=== PATIENT | female | born 1990 | race Caucasian/White ===

== ENCOUNTER 2018-05-27 16:39 | Emergency (ER) | payer OTHER ==
--- NOTE | 2018-05-27 16:49 | ED ---
General Adult HPI - General Stated complaint: Needlestick-[facility] Time Seen by Provider: 05/27/18 16:46 Source: patient, RN notes reviewed Mode of arrival: ambulatory Limitations: no limitations - History of Present Illness Initial comments: 27-year-old female presents emergency Department for finger stick. Patient denies emergency department. Patient states she was closing the A nail after giving IM injection. Patient states that she is unsure what caused the laceration. Patient up-to-date on her tetanus. Patient states injury happened to her index finger. Patient offers no other complaints. - Related Data Home Medications Medication Instructions Recorded Confirmed No Known Home Medications 08/30/13 08/30/13 Allergies Allergy/AdvReac Type Severity Reaction Status Date / Time Penicillins Allergy Unknown Verified 08/30/13 15:49 Review of Systems ROS Statement: Those systems with pertinent positive or pertinent negative responses have been documented in the HPI. ROS Other: All systems not noted in ROS Statement are negative. Past Medical History Past Medical History: No Reported History History of Any Multi-Drug Resistant Organisms: None Reported Past Surgical History: No Surgical Hx Reported Past Anesthesia/Blood Transfusion Reactions: No Reported Reaction Past Psychological History: No Psychological Hx Reported Smoking Status: Never smoker Past Alcohol Use History: None Reported Past Drug Use History: None Reported General Exam General appearance: alert, in no apparent distress Head exam: Present: atraumatic, normocephalic, normal inspection Eye exam: Present: normal appearance, PERRL, EOMI. Absent: scleral icterus, conjunctival injection, periorbital swelling ENT exam: Present: normal exam, normal oropharynx, mucous membranes moist Neck exam: Present: normal inspection. Absent: tenderness, meningismus, lymphadenopathy Respiratory exam: Present: normal lung sounds bilaterally. Absent: respiratory distress, wheezes, rales, rhonchi, stridor Cardiovascular Exam: Present: regular rate, normal rhythm, normal heart sounds. Absent: systolic murmur, diastolic murmur, rubs, gallop, clicks Extremities exam: Present: other (Small puncture wound noted on theFinger) Skin exam: Present: warm, dry, intact, normal color. Absent: rash Medical Decision Making - Medical Decision Making 27-year-old female presented for possible needlestick. Patient revealed we ordered. We discussed prophylaxis this will be based on HIV. We discussed follow-up. Disposition Clinical Impression: Needlestick injury accident Disposition: HOME SELF-CARE Condition: Stable Instructions (If sedation given, give patient instructions): Needle Stick Injuries (ED) Additional Instructions: Please return to the Emergency Department if symptoms worsen or any other concerns. Is patient prescribed a controlled substance at d/c from ED?: No Referrals: Josh Smart MD [Primary Care Provider] - 1-2 days Time of Disposition: 16:49
[2018-05-27 16:50] VITALS: BP 134/83; PULSE 93; RESP 16; TEMP 98.5
== END 2018-05-27 17:24 | disposition home or self-care (01) ==
LOC: EC 16:39
DX: S61.231A Puncture wound without foreign body of left index finger without damage to nail, initial encounter (principal); Z88.0 Allergy status to penicillin; W27.3XXA Contact with needle (sewing), initial encounter; Y92.239 Unspecified place in hospital as the place of occurrence of the external cause; Y99.0 Civilian activity done for income or pay
CPT/HCPCS: 99282

== ENCOUNTER 2019-08-14 22:39 | Inpatient (IN) | payer MEDICAID ==
[2019-08-14] MEDS ORDERED: CARBOPROST TROMETHAMINE 250 MCG/ML 1 ML AMP IM PRN (23:10)
[2019-08-14] MEDS ORDERED: OXYTOCIN 10 UNIT/ML 1 ML VIAL IM PRN (23:10)
[2019-08-14] MEDS ORDERED: TERBUTALINE 1 MG/ML VIAL SQ PRN (23:10)
[2019-08-14] MEDS ORDERED: LIDOCAINE 0.5% (PF) 5 MG/ML (50 ML SDV) SQ PRN (23:10)
[2019-08-14] MEDS ORDERED: METHYLERGONOVINE 0.2 MG/ML 1 ML AMP IM PRN (23:10)
[2019-08-14] MEDS ORDERED: CLINDAMYCIN 900 MG in DEXTROSE 5% IN WATER 50 ML IVPB STA ×2 (23:10)
[2019-08-14 23:31] LABS: Basophils % (A) 0 %; Eosinophils # (A) 0.2 k/uL (0-0.7); Eosinophils % (A) 2 %; HCT 37.4 % (34.0-46.0); HGB 11.9 gm/dL (11.4-16.0); Lymphocytes # (A) 2.2 k/uL (1.0-4.8); Lymphocytes % (A) 22 %; MCH 28.9 pg (25.0-35.0); MCHC 31.8 g/dL (31.0-37.0); Mean Platelet Volume 8.1; Monocytes # (A) 0.4 k/uL (0-1.0); Monocytes % (A) 4 %; Neutrophils # (A) 6.8 k/uL (1.3-7.7); Neutrophils % (A) 70 %; Platelet Count 277 k/uL (150-450); RBC 4.11 m/uL (3.80-5.40); RDW 14.4 % (11.5-15.5); WBC 9.7 k/uL (3.8-10.6)
[2019-08-14] MEDS: LACTATED RINGERS 1,000 ML IV SCH (23:38)
[2019-08-15] MEDS: BUTORPHANOL 1 MG/ML 1 ML VIAL IV PRN ×2 (02:11→08:12)
[2019-08-15] MEDS: OXYTOCIN 30 UNITS/500 ML NS 30 UNIT in SALINE 1 500ML.BAG IV SCH (02:20)
[2019-08-15] MEDS ORDERED: CLINDAMYCIN 900 MG in DEXTROSE 5% IN WATER 50 ML IVPB SCH ×2 (07:12)
--- NOTE | 2019-08-15 07:15 | P.HPOB ---
History of Present Illness H&P Date: 08/15/19 Chief Complaint: 37-0/7 weeks, spontaneous rupture of membranes The patient is a 29-year-old 1 para 0 admitted at 37-0/7 weeks by good dating parameters. She is admitted with documented spontaneous rupture of membranes and minimal contractions. Her has been complicated by mild to moderate obesity and, most recently, was found to have a large for gestati onal age fetus growing at the 99th percentile at 35 weeks of gestation. Group B strep status is pending at this time. The remainder of the has been uncomplicated. Obstetrical history: 1 para 0 with current statistics listed in history of present illness. EDC of 09/04/2019 was established by last menstrual period and confirmed by second trimester ultrasound. Laboratory workup demonstrates a blood type of A+ with a negative antibody screen. Rubella status is immune. The remainder of the laboratory workup was within normal limits. Early Glucola as well as second trimester Glucola were both normal. Group B strep status is pending at this time. Gynecologic history: Unremarkable with no history of any infections to include STDs. Review of Systems Review of systems is confined to history of present illness. Past Medical History Past Medical History: No Reported History History of Any Multi-Drug Resistant Organisms: None Reported Past Surgical History: No Surgical Hx Reported Additional Past Surgical History / Comment(s): wisdom teeth removed. Past Anesthesia/Blood Transfusion Reactions: No Reported Reaction Past Psychological History: No Psychological Hx Reported Smoking Status: Never smoker Past Alcohol Use History: None Reported Past Drug Use History: None Reported - Past Family History Father Family Medical History: No Reported History Medications and Allergies Home Medications Medication Instructions Recorded Confirmed Type Omeprazole [PriLOSEC] 20 mg PO AC-BRKFST 08/15/19 08/15/19 History Pnv 11/Iron Fum/Folic Acid/Om3 1 each PO DAILY 08/15/19 08/15/19 History [Virt-Minesh Dha Softgel] Allergies Allergy/AdvReac Type Severity Reaction Status Date / Time Penicillins Allergy Anaphylaxis Verified 08/14/19 22:45 red dye Allergy Rash/Hives Verified 08/14/19 22:44 Exam Vital Signs Temp Pulse Resp BP Pulse Ox 08/14/19 23:13 98.4 F 109 H 18 130/74 99 08/14/19 23:10 97.1 F L 18 Intake and Output 08/14/19 08/15/19 08/15/19 22:59 06:59 14:59 Other: # Voids 1 Weight 131.088 kg 131.088 kg In general, this is a well-developed, mildly obese white female in no acute distress. Her heart has a regular rhythm and rate without murmur. Her lungs are clear to auscultation bilaterally in all bernstein. Her abdomen is gravid, nondistended, has normal active bowel sounds, soft, nontender, and without any palpable masses aside from uterine fundus. Her extremities are without any cyanosis, clubbing, or edema and are nontender to palpation bilaterally. Digital cervical examination performed by the nursing staff demonstrates her cervix to be 7 cm dilated, 90% effaced, the vertex in presentation at -1 station. This has been no change for the last 8+ hours. Results Result Diagrams: 08/14/19 23:25 Assessment and Plan (1) Large for gestational age fetus Current Visit: No Status: Acute Code(s): LKI0491 - SNOMED Code(s): 097524808 (2) Term Current Visit: No Status: Acute Code(s): Z34.90 - ENCNTR FOR SUPRVSN OF NORMAL , UNSP, UNSP TRIMESTER SNOMED Code(s): 39638156 (3) Spontaneous rupture of amniotic membranes Current Visit: No Status: Acute Code(s): MEH8883 - SNOMED Code(s): 293953683 Plan: As the patient's group B strep status is unknown, antibody prophylaxis has been started. She additionally has had Pitocin augmentation started as well. She will continue to have close maternal and surveillance and expectant darya gement will be practiced. We did have a discussion regarding the large for gestational age fetus at greater than 99th percentile and the possibility that the lack of cervical change is secondary to a very large baby.
[2019-08-15] MEDS: LACTATED RINGERS 1,000 ML IV SCH ×2 (09:57→16:09)
[2019-08-15] MEDS ORDERED: CITRIC ACID-SODIUM CITRATE 15 ML CUP PO ONE (10:55)
[2019-08-15] MEDS ORDERED: LACTATED RINGERS 1,000 ML IV ONE (10:55)
[2019-08-15] MEDS ORDERED: ONDANSETRON 4 MG/2 ML VIAL IVP STA (11:13)
[2019-08-15] MEDS ORDERED: MORPHINE SULFATE (PF) 0.3 MG/0.3 ML SYR ONE (11:48)
[2019-08-15] MEDS ORDERED: KETOROLAC 30 MG/ML 1 ML VIAL ONE (11:48)
[2019-08-15] MEDS ORDERED: OXYTOCIN 10 UNIT/ML 1 ML VIAL ONE (11:48)
[2019-08-15] MEDS ORDERED: diphenhydrAMINE 50 MG/ML 1 ML VIAL IVP PRN ×2 (12:15→12:43)
[2019-08-15] MEDS ORDERED: NALOXONE 0.4 MG/ML 1 ML VIAL IV PRN (12:15)
[2019-08-15] MEDS ORDERED: MORPHINE SULFATE 2 MG/ML SYRINGE IVP PRN (12:15)
[2019-08-15] MEDS ORDERED: HYDROcodone/APAP 5-325MG 1 EACH TAB PO PRN (12:43)
[2019-08-15] MEDS ORDERED: ONDANSETRON 4 MG/2 ML VIAL IVP PRN (12:43)
[2019-08-15] MEDS ORDERED: diphenhydrAMINE 50 MG CAP PO PRN (12:43)
[2019-08-15] MEDS ORDERED: HYDROcodone/APAP 7.5-325MG 1 EACH TAB PO PRN (12:43)
[2019-08-15] MEDS ORDERED: ZOLPIDEM 5 MG TAB PO PRN (12:43)
[2019-08-15] MEDS ORDERED: diphenhydrAMINE 25 MG CAP PO PRN (12:43)
[2019-08-15] MEDS ORDERED: METOCLOPRAMIDE 5 MG/ML 2 ML VIAL IVP PRN (12:43)
[2019-08-15] MEDS ORDERED: SIMETHICONE 80 MG CHEWABLE PO PRN (12:43)
[2019-08-15] MEDS ORDERED: OXYTOCIN 20 UNITS/1000 ML NS 1,000 ML IV SCH (12:45)
--- NOTE | 2019-08-15 12:52 | P.OP ---
Date of Procedure: 08/15/19 Preoperative Diagnosis: #1. 37-0/7 weeks, spontaneous rupture of membranes #2. Suspected macrosomia #3. Arrest of dilation and descent Postoperative Diagnosis: Same plus #4. occiput posterior position Procedure(s) Performed: #1. Primary low-transverse section Anesthesia: spinal Surgeon: Dario Canales Senior Assistant Manager #1: Irina Spicer Estimated Blood Loss (ml): 400 IV fluids (ml): 500 Urine output (ml): 300 Pathology: none sent Condition: stable Disposition: floor Operative Findings: Preoperatively, the patient had presented to labor and delivery with documented spontaneous rupture of membranes for clear fluid at which time she was found to be 7 cm dilated. She had unknown group B strep status and had antibiotic prophylaxis started. After several hours of no significant change or contractions, Pitocin augmentation was added. Over the course of the next 10 hours, the patient made minimal progress despite an adequate contraction pattern with Pitocin and, bedside examination led to suspicion for occiput posterior. Given the suspected macrosomia as well, the decision was made to proceed with primary low-transverse section. She was taken the operating room where she was delivered of a viable 7 lbs. 15 oz. baby boy with Apgars of 8 at 1 minute and 9 at 5 minutes in the left occiput posterior position. The placenta was delivered spontaneously, intact, and grossly normal with a grossly normal three-vessel cord. The uterus, tubes, and ovaries were entirely normal to inspection. Description of Procedure: The patient was prepped and draped in usual fashion after spinal anesthesia was administered by the anesthesiologist. A Pfannenstiel incision was made and extended into the abdominal cavity without difficulty. The bladder peritoneum was elevated, incised, and reflected distally. A 2 cm incision was made in the lower uterine segment in the transverse plane to enter the uterus at which time moderate amount of clear fluid was noted. The incision was extended in both directions using the bandage scissors. The head was found deep in the pelvis and was elevated up and out of the incision in the left occiput posterior position where the nose and mouth were thoroughly suctioned. The remainder of the was delivered onto the field and the cord was doubly clamped and cut along the be passed for resuscitative measures with weight and Apgars as noted above. A segment of cord was doubly clamped, cut, and set aside should cord gases become necessary. The placenta was delivered spontaneously with gentle traction and uterine massage. The uterus was exteriorized and the interior cavity of the uterus swept of any remaining placental or membranous fragments. The margins of the incision were grasped with Milian clamps and the uterus closed in 2 layers. The first layer was a running locking stitch of 0 chromic catgut from margin to margin followed by a running imbricating stitch of 0 chromic catgut from margin to margin. Following closure, the posterior cul-de-sac was suctioned using a guard and the uterine and ovarian findings were normal as noted above. Reexamination of the incision demonstrated some minimal oozing at the left angle which was made hemostatic with a jizytl-dy-tzyzf stitch of 0 chromic catgut. The uterus was replaced within the abdominal cavity and th e gutters swept of any remaining blood, fluid, or clot. The incision was reexamined and found to be hemostatic. The parietal peritoneum was loosely reapproximated in the layer of muscles examined and made hemostatic with the Bovie. The fascia was closed with 2 running stitches of 0 Vicryl proceeding from the lateral margins to the midpoint. The subcutaneous tissues were irrigated, made hemostatic with the Bovie, and reapproximated with a running stitch of 30 plain catgut. The skin was reapproximated with a running subcuticular stitch of 4-0 Vicryl followed by half-inch Steri-Strips placed with Mastisol. Estimated blood loss for the case was approximate 400 mL. There were no complications. All sponge, instrument, and needle counts were correct. The patient tolerated the procedure well and proceeded to the recovery room in stable condition. Both mother and are resting comfortably in recovery.
[2019-08-15] MEDS: KETOROLAC 30 MG/ML 1 ML VIAL IVP PRN (19:41)
[2019-08-15] MEDS: SENNOSIDES-DOCUSATE SODIUM 1 EACH TAB PO SCH (19:42)
[2019-08-16 06:32] LABS: Basophils % (A) 0 %; Eosinophils # (A) 0.1 k/uL (0-0.7); Eosinophils % (A) 1 %; HGB 11.4 gm/dL (11.4-16.0); Lymphocytes # (A) 1.7 k/uL (1.0-4.8); Lymphocytes % (A) 15 %; MCH 30.8 pg (25.0-35.0); MCHC 33.4 g/dL (31.0-37.0); MCV 92.2 fL (80.0-100.0); Mean Platelet Volume 8.2; Monocytes # (A) 0.5 k/uL (0-1.0); Monocytes % (A) 5 %; Neutrophils # (A) 8.9 k/uL (1.3-7.7); Neutrophils % (A) 78 %; Platelet Count 263 k/uL (150-450); RBC 3.69 m/uL (3.80-5.40); RDW 14.6 % (11.5-15.5); WBC 11.4 k/uL (3.8-10.6)
[2019-08-16] MEDS: SENNOSIDES-DOCUSATE SODIUM 1 EACH TAB PO SCH ×2 (07:37→19:30)
[2019-08-16] MEDS: KETOROLAC 30 MG/ML 1 ML VIAL IVP PRN (07:37)
--- NOTE | 2019-08-16 07:44 | P.PNOBGPC ---
Subjective - Subjective Patient reports: Reports appetite normal, Reports voiding normally, Reports pain well controlled, Reports ambulating normally : doing well Objective - Vital Signs Latest vital signs: Vital Signs Temp Pulse Resp BP Pulse Ox 08/16/19 06:00 16 08/16/19 04:00 98.5 F 80 16 118/62 08/16/19 02:00 16 08/15/19 23:58 99.1 F 84 16 116/59 97 08/15/19 23:56 16 08/15/19 22:00 16 97 08/15/19 20:00 96.8 F L 81 16 128/63 97 08/15/19 18:00 16 08/15/19 15:54 96.1 F L 79 16 106/55 08/15/19 14:45 70 16 107/58 08/15/19 14:17 16 95 08/15/19 14:15 59 L 16 103/58 08/15/19 13:45 56 L 16 107/57 96 08/15/19 13:30 74 16 115/55 97 08/15/19 13:15 104 H 15 118/59 97 08/15/19 13:00 73 16 113/51 97 08/15/19 12:45 97.0 F L 78 15 121/58 95 Intake and Output 08/15/19 08/16/19 08/16/19 22:59 06:59 14:59 Output Total 450 Balance -450 Output: Urine 450 - Exam Extremities: Present: normal, edema (Trace edema bilaterally below the calf.) Abdomen: Present: normal appearance, soft. Absent: distention, tenderness Incision: Present: normal, dry, intact Uterus: Present: normal, firm (The uterine fundus is tonic inappropriately tender just below the umbilicus.) - Labs Labs: Abnormal Lab Results - Last 24 Hours (Table) 08/16/19 Range/Units 06:06 WBC 11.4 H (3.8-10.6) k/uL RBC 3.69 L (3.80-5.40) m/uL Neutrophils # 8.9 H (1.3-7.7) k/uL Assessment and Plan (1) Large for gestational age fetus Current Visit: No Status: Acute Code(s): BCE9320 - SNOMED Code(s): 600158726 (2) Term Current Visit: No Status: Acute Code(s): Z34.90 - ENCNTR FOR SUPRVSN OF NORMAL , UNSP, UNSP TRIMESTER SNOMED Code(s): 63636745 (3) Spontaneous rupture of amniotic membranes Current Visit: No Status: Acute Code(s): WCD4337 - SNOMED Code(s): 992259684 (4) Status post section Current Visit: Yes Status: Acute Code(s): Z98.891 - HISTORY OF UTERINE SCAR FROM PREVIOUS SURGERY SNOMED Code(s): 969829632 Plan: Continue routine postoperative care. I would anticipate possible discharge home tomorrow pending the complications. I have encouraged the patient to ambulate in the hallways at least 4 times daily, if not more.
--- NOTE | 2019-08-16 08:16 | P.PN ---
Progress Note - Text Date: 08/16/2019 Time: 07:58 The patient is status post section Vital signs stable VAS: 0-10 Patient has no complaints of pain. The patient incurred some minimal itching yesterday, this itching is now subsiding. Pain meds to be managed by service.
[2019-08-16] MEDS: LACTATED RINGERS 1,000 ML IV SCH ×4 (08:30→20:39)
[2019-08-16] MEDS: ACETAMINOPHEN TAB 325 MG TAB PO PRN ×2 (09:08→15:43)
[2019-08-16] MEDS: IBUPROFEN 600 MG TAB PO PRN ×2 (15:43→22:10)
[2019-08-16] MEDS: OXYTOCIN 30 UNITS/500 ML NS 30 UNIT in SALINE 1 500ML.BAG IV SCH (20:38)
[2019-08-17] MEDS: SENNOSIDES-DOCUSATE SODIUM 1 EACH TAB PO SCH (07:26)
[2019-08-17] MEDS: IBUPROFEN 600 MG TAB PO PRN (07:26)
[2019-08-17 07:48] VITALS: BP 137/78; PULSE 79; RESP 16; TEMP 98.4
--- NOTE | 2019-08-17 08:42 | P.DS ---
Providers Date of admission: 08/14/19 23:10 Expected date of discharge: 08/17/19 Attending physician: Lamar Sawyer Primary care physician: Stated None - Discharge Diagnosis(es) (1) Large for gestational age fetus Current Visit: No Status: Acute (2) Term Current Visit: No Status: Acute (3) Spontaneous rupture of amniotic membranes Current Visit: No Status: Acute (4) Status post section Current Visit: Yes Status: Acute Hospital Course: The patient is a 29-year-old 1 para 0 admitted at 37-0/7 weeks by good dating parameters. She is admitted with documented spontaneous rupture of membranes with clear fluid and not in labor. As her group B strep was unknown, antibiotic prophylaxis was started as was Pitocin augmentation. Over the course of the next 10-12 hours she made minimal to no progress with either dilation or descent. She was known to have a large for gestational age fetus with growth at the 99th percentile. Given these findings, she opted to proceed with primary low-transverse section. She was taken to the operating room where she was delivered by section of a viable 7 lbs. 15 oz. baby boy with Apgars of 8 at 1 minute and 9 at 5 minutes in the left occiput posterior position. Her postoperative course was unremarkable with vital signs remaining stable and her temperature was afebrile throughout. She was deemed stable for discharge on day #2/postoperative day #2. She was discharged home to follow-up in the office in 2 weeks for an incision check and 6 weeks routinely. Discharge instructions included calling for any significantly increased bleeding or foul- smelling lochia, significantly increased fever or abdominal pain, perineal complaints, breast complaints, incisional complaints, or anything else that concerned her. She is additionally instructed to have nothing in the vagina for at least 6 weeks time to include intercourse. She was also instructed to do no heavy lifting over the next 4-6 weeks and to abstain from driving until off of all pain medications or 2 weeks' time, whichever came first. She understood all of her instructions and agrees follow up as noted above. Discharge medications included continued vitamins as she has opted to breast-feed. She otherwise was intending to use [id number] analgesic pain medications as needed. She was offered a narcotic and declined. Maternal blood type is A+ and rubella status is immune. Discharge hemoglobin and hematocrit were 11.4 and 34.0 respectively. Procedures: #1. Antibiotic prophylaxis #2. Pitocin augmentation #3. Primary low- transverse section Patient Condition at Discharge: Stable Plan - Discharge Summary New Discharge Prescriptions: No Action Omeprazole [PriLOSEC] 20 mg PO AC-BRKFST Pnv 11/Iron Fum/Folic Acid/Om3 [Virt-Minesh Dha Softgel] 1 each PO DAILY Discharge Medication List Omeprazole [PriLOSEC] 20 mg PO AC-BRKFST 08/15/19 [History] Pnv 11/Iron Fum/Folic Acid/Om3 [Virt-Minesh Dha Softgel] 1 each PO DAILY 08/15/19 [History] Follow up Appointment(s)/Referral(s): Lamar Sawyer MD [STAFF PHYSICIAN] - 2 Weeks Discharge Disposition: HOME SELF-CARE
== END 2019-08-17 10:15 | disposition home or self-care (01) | DRG 788 ==
LOC: FBPOP 22:39 → 4FBP 23:10
PROVIDERS: ADMIT Obstetrics & Gynecology; ATTEND Obstetrics & Gynecology
PROC: 10D00Z1 Extraction of Products of Conception, Low, Open Approach (ICD-10-PCS; principal; 2019-08-15 10:48)
DX: O36.63X0 Maternal care for excessive fetal growth, third trimester, not applicable or unspecified (principal); Z37.0 Single live birth; Z3A.37 37 weeks gestation of pregnancy; O62.1 Secondary uterine inertia; O99.214 Obesity complicating childbirth; E66.9 Obesity, unspecified; Z88.0 Allergy status to penicillin; Z91.041 Radiographic dye allergy status
CPT/HCPCS: 59025; 84112; 85025; 86850; 86900; 86901; 99213

== ENCOUNTER 2019-08-22 23:04 | Emergency (ER) | payer MEDICAID ==
[2019-08-22 23:12] VITALS: BP 143/89; PULSE 117; RESP 18; TEMP 98.4
[2019-08-23] MEDS ORDERED: SODIUM CHLORIDE 0.9% 1,000 ML IV STA (00:04)
[2019-08-23] MEDS ORDERED: AMPICILLIN-SULBACTAM 3 GM in SODIUM CHLORIDE 0.9% 100 ML IVPB ONE (00:15)
--- NOTE | 2019-08-23 00:15 | ED ---
Recheck HPI - General Chief Complaint: Recheck/Abnormal Lab/Rx Stated Complaint: infection Time Seen by Provider: 08/22/19 23:25 Source: patient, RN notes reviewed, old records reviewed Mode of arrival: ambulatory Limitations: no limitations - History of Present Illness Initial Comments: This is a 29-year-old female DF for evaluation patient comes in for possible bone infection. Recent delivery, patient is breast-feeding at home. No other medical history takes no medications denying fevers admits to little anxiety and stress of the new and situation but otherwise no medications patient did several forms of high blood pressure MD Complaint: wound re-check (Surgical wound of ) -: days(s) Returns Today for: wound recheck Symptoms Since Prior Visit: no new symptoms Associated Symptoms: none - Related Data Home Medications Medication Instructions Recorded Confirmed Omeprazole [PriLOSEC] 20 mg PO AC-BRKFST 08/15/19 08/15/19 Pnv 11/Iron Fum/Folic Acid/Om3 1 each PO DAILY 08/15/19 08/15/19 [Virt-Minesh Dha Softgel] Previous Rx's Medication Instructions Recorded Cephalexin [Keflex] 500 mg PO Q6HR #40 cap 08/23/19 Allergies Allergy/AdvReac Type Severity Reaction Status Date / Time Penicillins Allergy Anaphylaxis Verified 08/22/19 23:12 red dye Allergy Rash/Hives Verified 08/22/19 23:12 Review of Systems ROS Statement: Those systems with pertinent positive or pertinent negative responses have been documented in the HPI. ROS Other: All systems not noted in ROS Statement are negative. Past Medical History Past Medical History: No Reported History History of Any Multi-Drug Resistant Organisms: None Reported Past Surgical History: Section Additional Past Surgical History / Comment(s): wisdom teeth removed. Past Anesthesia/Blood Transfusion Reactions: No Reported Reaction Past Psychological History: No Psychological Hx Reported Smoking Status: Never smoker Past Alcohol Use History: None Reported Past Drug Use History: None Reported - Past Family History Father Family Medical History: No Reported History General Exam - General Exam Comments Initial Comments: Abdominal her surgical incision right-sided purulent drainage and tenderness was strongly erythema Limitations: no limitations General appearance: alert, in no apparent distress Head exam: Present: atraumatic, normocephalic, normal inspection Eye exam: Present: normal appearance, PERRL, EOMI. Absent: scleral icterus, conjunctival injection, periorbital swelling ENT exam: Present: normal exam, mucous membranes moist Neck exam: Present: normal inspection. Absent: tenderness, meningismus, lymphadenopathy Respiratory exam: Present: normal lung sounds bilaterally. Absent: respiratory distress, wheezes, rales, rhonchi, stridor Cardiovascular Exam: Present: regular rate, normal rhythm, normal heart sounds. Absent: systolic murmur, diastolic murmur, rubs, gallop, clicks GI/Abdominal exam: Present: soft, normal bowel sounds. Absent: distended, tenderness, guarding, rebound, rigid Extremities exam: Present: normal inspection, full ROM, normal capillary refill. Absent: tenderness, pedal edema, joint swelling, calf tenderness Back exam: Present: normal inspection Neurological exam: Present: alert, oriented X3, CN II-XII intact Psychiatric exam: Present: normal affect, normal mood Skin exam: Present: warm, dry, intact, normal color. Absent: rash Course Vital Signs 08/22/19 23:07 Temperature 98.4 F Pulse Rate 117 H Respiratory 18 Rate Blood Pressure 143/89 O2 Sat by Pulse 100 Oximetry - Reevaluation(s) Reevaluation #1: Medical records reviewed No pain - Consultations Consultation #1: spoke with Dr. Florentino aware of patient to follow-up this week Medical Decision Making - Medical Decision Making 29 female to the ER for evaluation patient presents today for evaluation of wound infection. Patient does apparently drainage will start on antibiotics lab values otherwise normal patient can be discharged home - Lab Data Result diagrams: 08/23/19 00:47 08/23/19 00:47 Lab Results 08/23/19 08/23/19 08/23/19 Range/Units 00:47 00:47 00:47 WBC 6.0 (3.8-10.6) k/uL RBC 4.21 (3.80-5.40) m/uL Hgb 12.0 (11.4-16.0) gm/dL Hct 37.6 (34.0-46.0) % MCV 89.5 (80.0-100.0) fL MCH 28.6 (25.0-35.0) pg MCHC 32.0 (31.0-37.0) g/dL RDW 13.7 (11.5-15.5) % Plt Count 262 (150-450) k/uL Neutrophils % 74 % Lymphocytes % 17 % Monocytes % 6 % Eosinophils % 1 % Basophils % 0 % Neutrophils # 4.4 (1.3-7.7) k/uL Lymphocytes # 1.0 (1.0-4.8) k/uL Monocytes # 0.3 (0-1.0) k/uL Eosinophils # 0.1 (0-0.7) k/uL Basophils # 0.0 (0-0.2) k/uL Sodium 136 L (137-145) mmol/L Potassium 4.1 (3.5-5.1) mmol/L Chloride 104 (98-107) mmol/L Carbon Dioxide 22 (22-30) mmol/L Anion Gap 10 mmol/L BUN 12 (7-17) mg/dL Creatinine 0.80 (0.52-1.04) mg/dL Est GFR (CKD-EPI)AfAm >90 (>60 ml/min/1.73 sqM) Est GFR (CKD-EPI)NonAf >90 (>60 ml/min/1.73 sqM) Glucose 110 H (74-99) mg/dL Plasma Lactic Acid Yevgeniy (0.7-2.0) mmol/L Calcium 9.0 (8.4-10.2) mg/dL Phosphorus 3.3 (2.5-4.5) mg/dL Magnesium 1.8 (1.6-2.3) mg/dL Total Bilirubin 0.5 (0.2-1.3) mg/dL AST 38 H (14-36) U/L ALT 27 (4-34) U/L Alkaline Phosphatase 101 (38-126) U/L Total Protein 7.2 (6.3-8.2) g/dL Albumin 3.6 (3.5-5.0) g/dL Urine Color Light Yellow Urine Appearance Clear (Clear) Urine pH 7.0 (5.0-8.0) Ur Specific [place] 1.005 (1.001-1.035) Urine Protein Negative (Negative) Urine Glucose (UA) Negative (Negative) Urine Ketones Negative (Negative) Urine Blood Moderate H (Negative) Urine Nitrite Negative (Negative) Urine Bilirubin Negative (Negative) Urine Urobilinogen <2.0 (<2.0) mg/dL Ur Leukocyte Esterase Moderate H (Negative) Urine RBC 2 (0-5) /hpf Urine WBC 17 H (0-5) /hpf Ur Squamous Epith Cells 1 (0-4) /hpf Urine Bacteria Rare H (None) /hpf 08/23/19 Range/Units 00:47 WBC (3.8-10.6) k/uL RBC (3.80-5.40) m/uL Hgb (11.4-16.0) gm/dL Hct (34.0-46.0) % MCV (80.0-100.0) fL MCH (25.0-35.0) pg MCHC (31.0-37.0) g/dL RDW (11.5-15.5) % Plt Count (150-450) k/uL Neutrophils % % Lymphocytes % % Monocytes % % Eosinophils % % Basophils % % Neutrophils # (1.3-7.7) k/uL Lymphocytes # (1.0-4.8) k/uL Monocytes # (0-1.0) k/uL Eosinophils # (0-0.7) k/uL Basophils # (0-0.2) k/uL Sodium (137-145) mmol/L Potassium (3.5-5.1) mmol/L Chloride (98-107) mmol/L Carbon Dioxide (22-30) mmol/L Anion Gap mmol/L BUN (7-17) mg/dL Creatinine (0.52-1.04) mg/dL Est GFR (CKD-EPI)AfAm (>60 ml/min/1.73 sqM) Est GFR (CKD-EPI)NonAf (>60 ml/min/1.73 sqM) Glucose (74-99) mg/dL Plasma Lactic Acid Yevgeniy 1.0 (0.7-2.0) mmol/L Calcium (8.4-10.2) mg/dL Phosphorus (2.5-4.5) mg/dL Magnesium (1.6-2.3) mg/dL Total Bilirubin (0.2-1.3) mg/dL AST (14-36) U/L ALT (4-34) U/L Alkaline Phosphatase (38-126) U/L Total Protein (6.3-8.2) g/dL Albumin (3.5-5.0) g/dL Urine Color Urine Appearance (Clear) Urine pH (5.0-8.0) Ur Specific [place] (1.001-1.035) Urine Protein (Negative) Urine Glucose (UA) (Negative) Urine Ketones (Negative) Urine Blood (Negative) Urine Nitrite (Negative) Urine Bilirubin (Negative) Urine Urobilinogen (<2.0) mg/dL Ur Leukocyte Esterase (Negative) Urine RBC (0-5) /hpf Urine WBC (0-5) /hpf Ur Squamous Epith Cells (0-4) /hpf Urine Bacteria (None) /hpf Disposition Clinical Impression: Status post section, Postoperative infection Narrative: Incision infection of C section Disposition: HOME SELF-CARE Condition: Good Prescriptions: Cephalexin [Keflex] 500 mg PO Q6HR #40 cap Is patient prescribed a controlled substance at d/c from ED?: No Referrals: Dario Canales MD [STAFF PHYSICIAN] - 1-2 days
[2019-08-23] MEDS ORDERED: CEPHALEXIN 500MG STARTER PACK 4 CAP BTL PO STA (00:20)
[2019-08-23 01:03] LABS: Basophils % (A) 0 %; Eosinophils # (A) 0.1 k/uL (0-0.7); Eosinophils % (A) 1 %; HCT 37.6 % (34.0-46.0); Lymphocytes % (A) 17 %; MCH 28.6 pg (25.0-35.0); MCV 89.5 fL (80.0-100.0); Mean Platelet Volume 7.8; Monocytes # (A) 0.3 k/uL (0-1.0); Monocytes % (A) 6 %; Neutrophils # (A) 4.4 k/uL (1.3-7.7); Neutrophils % (A) 74 %; Platelet Count 262 k/uL (150-450); RBC 4.21 m/uL (3.80-5.40); RDW 13.7 % (11.5-15.5)
[2019-08-23 01:12] LABS: ALT 27 U/L (4-34); AST 38 U/L (14-36); African American GFR (CKD) >90 (>60 ml/min/1.73 sqM); Albumin 3.6 g/dL (3.5-5.0); Alkaline Phosphatase 101 U/L (38-126); Anion Gap 10 mmol/L; Blood Urea Nitrogen 12 mg/dL (7-17); Carbon Dioxide 22 mmol/L (22-30); Chloride 104 mmol/L (98-107); Glucose 110 mg/dL (74-99); Magnesium 1.8 mg/dL (1.6-2.3); Non-African American GFR(CKD) >90 (>60 ml/min/1.73 sqM); Phosphorus 3.3 mg/dL (2.5-4.5); Potassium 4.1 mmol/L (3.5-5.1); Sodium 136 mmol/L (137-145); Total Bilirubin 0.5 mg/dL (0.2-1.3); Total Protein 7.2 g/dL (6.3-8.2)
[2019-08-23 01:17] LABS: Appearance,Urine Clear (Clear); Bacteria,Urine Rare /hpf; Bilirubin,Urine Negative (Negative); Blood,Urine Moderate (Negative); Color,Urine Light Yellow; Glucose,Urine (UA) Negative (Negative); Ketones,Urine Negative (Negative); Leukocyte Esterase,Urine Moderate (Negative); Nitrite,Urine Negative (Negative); Protein,Urine Negative (Negative); RBC,Urine 2 /hpf (0-5); Specific Gravity,Urine 1.005 (1.001-1.035); Squamous Epithelial Cell,Urine 1 /hpf (0-4); Urobilinogen,Urine <2.0 mg/dL (<2.0); WBC,Urine 17 /hpf (0-5)
== END 2019-08-23 01:56 | disposition home or self-care (01) ==
LOC: EC 23:04
DX: O86.00 Infection of obstetric surgical wound, unspecified (principal); Z88.0 Allergy status to penicillin; Z91.041 Radiographic dye allergy status; Z98.890 Other specified postprocedural states
CPT/HCPCS: 36415; 80053; 83605; 83735; 84100; 85025; 81001; 87040; 87070; 87086; 87205; 87075; 87077; 87186; 99284; 96365; J0690